=== PATIENT | female | born 1995 | race Hispanic/Latino ===

== ENCOUNTER 2017-04-13 20:00 | Inpatient (IN) | payer MEDICAID, OTHER, SELFPAY ==
[2017-04-13 21:23] VITALS: BMI 38.6
[2017-04-13] MEDS: Lactated Ringer's 1,000 ML IV SCH (21:32)
--- NOTE | 2017-04-13 22:12 | PDOC.LDHP ---
Labor and Delivery H&P Chief complaint: scheduled induction HPI: 21 yo [id number] @ 40.6 wks gestation by 8.0wk sono here for induction 2/2 postdates. Current gestational age (weeks): 40 (40.6) Due date: 04/07/17 Dating criteria: first trimester ultrasound (8wks) Grav: 3 Para: 2 (2001) OB History Details: OB Hx: 2010 2014 [place] [facility] Hx: NILM Current complications: none Abnormal US findings: No Current medications: pre- vitamins Previous surgical history: none Social history: none - Physical Exam Vital signs reviewed and normal: yes General: NAD Heart: RRR Lungs: CTAB Abdomen: gravid Extremeties: no edema FHT: category 1 (accels present, 130s) [place] contractions every: not jasmeet - Vaginal Exam cm dilated: 1 Effacement: 0% Station: -3 - OB Labs Blood type: B RH: positive Antibody Screen: negative HIV: negative RPR: negative HEPSAg: negative 1 hour GCT: negative GBS: negative Urine drug screen: not done Rubella: immune - Assessment 21 yo @40.6 wks gestation admitted for induction secondary to post dates. - Plan -: Plan: Cytotec 25 mcg every 3-4 hours Labor checks every 4 hours <Arcelia Dumont - Last Filed: 04/14/17 04:20> <Susanne Combs - Last Filed: 04/14/17 07:02> Allergies/Adverse Reactions: Allergies Allergy/AdvReac Type Severity Reaction Status Date / Time No Known Drug Allergies Allergy Verified 10/14/14 05:01 Attending Addendum - Attending Addendum I personally evaluated the patient and discussed the management with Dr. Dumont I agree with the History, Examination, Assessment and Plan documented above with any addition or exceptions noted below. 21 yo female at 40.6 wks admitted for IOL 2/2 postdates Cephalic. EFW 7 lbs. IOB labs and anatomy reviewed. 3T negative. GBS negative. Miso placed. Unfavorable cervix. Repeat exam in 4 hours will decide if able to place 2nd miso based on Cheng and contraction pattern. If unable and still unfavorable place Cook balloon. Cat 1 tracing. ABrayMD <Susanne Combs - Last Filed: 04/14/17 07:02>
[2017-04-13] MEDS ORDERED: Acetaminophen 500 MG TAB PO PRN (22:40)
[2017-04-13] MEDS ORDERED: Ondansetron HCl/PF 4 MG/2 ML Vial IVP PRN (22:40)
[2017-04-13] MEDS ORDERED: HYDROcodone/Acetaminophen 5/325 mg Tablet PO PRN ×2 (22:40)
[2017-04-13] MEDS ORDERED: Ibuprofen 800 MG TAB PO PRN (22:40)
[2017-04-13] MEDS ORDERED: Diphenoxylate HCl/Atropine Tablet PO PRN (22:40)
[2017-04-13] MEDS ORDERED: Carboprost 250 MCG/ML AMP IM PRN (22:40)
[2017-04-13] MEDS ORDERED: Lidocaine 1% (PF) 30 ML VIAL SC PRN (22:40)
[2017-04-13] MEDS ORDERED: Misoprostol 100 MCG TAB ONE (22:40)
[2017-04-13] MEDS ORDERED: Misoprostol 200 MCG TAB PR PRN (22:40)
[2017-04-13] MEDS ORDERED: Methylergonovine 0.2 MG/ML VIAL IM PRN (22:40)
[2017-04-13] MEDS ORDERED: Promethazine HCl 25 MG/ML VIAL IM PRN (22:40)
[2017-04-13] MEDS: Misoprostol 100 MCG TAB VAG SCH (22:42)
[2017-04-13 22:56] LABS: Hemoglobin 11.9 g/dL (12.0-16.0); Mean Corpuscular HGB CONC 33.5 g/dL (32.0-36.0); Mean Corpuscular Hemoglobin 27.7 pg (27.0-31.0); Mean Corpuscular Volume 82.6 fl (81.0-99.0); Mean Platelet Volume 8.2 fL (7.4-10.4); Platelet Count 258 thou/uL (130-400); RBC Distribution Width 13.1 % (11.5-14.5); Red Blood Cell (RBC) Count 4.31 mill/uL (4.20-5.40); White Blood Cell (WBC) Count 12.6 thou/uL (4.8-10.8)
[2017-04-13 23:35] LABS: Syphilis Antibody Nonreactive (Nonreactive); Syphilis Antibody Index 0.04 S/CO (<1.00 Non-Reactive)
[2017-04-13 23:46] LABS: HBSAg Index 0.41 S/CO (0-0.99); Hep B Surf Ag Non-Reactive S/CO (NonReactive)
--- NOTE | 2017-04-14 03:56 | PDOC.LDPN ---
Labor & Delivery Progress Note - Subjective Subjective: comfortable - Objective General: NAD Uterine fundus: non tender Dilation: 2 Effacement: 50% Station: -3 FHT: category 1 [place] contractions every: 1-2 minutes - Assessment (1) Post-dates Code(s): O48.0 - POST-TERM Current Visit: Yes Status: Acute Comment: Cytotec held at 0330 2/2 contractions q1-2minutes apart. Will repeat cervical check in four hours. If contractions space out, we will place an additional cytotec. Cheng score of a 6. <Arcelia Dumont - Last Filed: 04/14/17 03:54> Attending Addendum - Attending Addendum I personally evaluated the patient and discussed the management with Dr. Dumont I agree with the History, Examination, Assessment and Plan documented above with any addition or exceptions noted below. 21 yo female at 41 wks by 8.0 wk sono admitted for IOL 2/2 postdates . Now with frequent contractions concern at some points for tachysystole. Cat 1 tracing. Will Repeat exam in 2 hours, place Cook balloon at that time if not 4 cm. Dana <Susanne Combs - Last Filed: 04/14/17 07:05>
[2017-04-14] MEDS: Misoprostol 100 MCG TAB VAG SCH ×2 (04:23→06:52)
[2017-04-14] MEDS: Lactated Ringer's 1,000 ML IV SCH (04:51)
--- NOTE | 2017-04-14 06:41 | PDOC.LDPN ---
Labor & Delivery Progress Note - Subjective Subjective: painful contractions, no concerns - Objective Vital signs reviewed and normal: yes General: NAD, breathing through contractions Uterine fundus: non tender SVE: 06:25 Dilation: 4 Effacement: 50% (60) Station: -2 FHT: category 1, variability present [place] contractions every: Irregular - Assessment (1) Post-dates Code(s): O48.0 - POST-TERM Current Visit: Yes Status: Acute Comment: - at 40.6 wks presents for IOL for post-dates -Cytotec held at 0330 2/2 contractions q1-2minutes apart -Contractions q3-4 min -60/-2 @:625 -Start pitocin -q4h checks (2) Elective induction of labor planned Code(s): [id number] - Current Visit: Yes Status: Acute Comment: -For post- dates -Cytotec x1; tachysystole -On recheck patient dilated to 4; pitocin started Plan: continue plan of care <Nikia Galindo - Last Filed: 04/14/17 06:40> Attending Addendum - Attending Addendum I personally evaluated the patient and discussed the management with Dr. Galindo I agree with the History, Examination, Assessment and Plan documented above with any addition or exceptions noted below. 21 yo female at 41.0 wks by 8.0 wk sono admitted for IOL 2/2 postdates . Now 4 cm with favorable Cheng. Will start pitocin. Repeat exam prn or in 2 to 4 hours. Consider AROM with IUPC placement. Dana <Susanne Combs - Last Filed: 04/14/17 07:07>
[2017-04-14] MEDS ORDERED: LR 500 ML/Oxytocin 10 units 500 ML IV SCH (06:45)
[2017-04-14] MEDS: LR / Pitocin 40 units/1000 ml 1,000 ML IV PRN ×2 (09:58→11:54)
[2017-04-14] MEDS ORDERED: Milk Of Magnesia 30 ML UDCUP PO PRN (13:12)
[2017-04-14] MEDS ORDERED: LR / Pitocin 40 units/1000 ml 1,000 ML IV SCH (13:12)
[2017-04-14] MEDS ORDERED: Preparation H Ointment 28 GM TUBE PR PRN (13:12)
[2017-04-14] MEDS ORDERED: Lanolin Ointment 7 GM TUBE TOP PRN (13:12)
[2017-04-14] MEDS ORDERED: Bisacodyl 10 MG SUPP PR PRN (13:12)
[2017-04-14] MEDS ORDERED: Benzocaine/Menthol 20-0.5% 60 ML CAN TOP PRN (13:12)
[2017-04-14] MEDS: Ferrous Sulfate 325 MG TAB PO SCH (16:27)
[2017-04-14] MEDS: Ibuprofen 800 MG TAB PO SCH (22:13)
[2017-04-14] MEDS: Docusate Calcium (SURFAK) 240 MG CAP PO SCH (22:13)
[2017-04-15] MEDS: Ibuprofen 800 MG TAB PO SCH (06:43)
[2017-04-15 07:52] VITALS: BP 88/53; TEMP 98.4
--- NOTE | 2017-04-15 08:14 | PDOC.FM ---
- Subjective Subjective: Mellisa feels well this morning. BPs have been running on the lower side of normal, but she denies any dizziness, SOB, palpitations, or fatigue. C/o mild lower abdominal cramping type pain but has only had mild lochia overnight. - Objective MAR Reviewed: Yes Vital Signs & Weight: Vital Signs (12 hours) Temp Pulse Resp BP 04/15/17 07:50 98.4 F 77 20 88/53 L 04/15/17 04:48 98.5 F 85 18 95/58 L 04/15/17 00:40 97.9 F 83 18 93/53 L 04/14/17 20:25 98.5 F 91 20 110/58 L Weight Weight 102.058 kg I&O: 04/14/17 04/15/17 04/16/17 06:59 06:59 06:59 Intake Total 1000 Balance 1000 Result Diagrams: 04/13/17 22:27
--- NOTE | 2017-04-15 08:49 | PDOC.PP ---
Post Progress Note Post Day #: 1 Subjective: Mellisa feels well this morning. BPs have been running on the lower side of normal, but she denies any dizziness, SOB, palpitations, or fatigue. C/o mild lower abdominal cramping type pain but has only had mild lochia overnight. PO intake tolerated: yes Flatus: yes Ambulation: yes Vital Signs (12 hours) Temp Pulse Resp BP 04/15/17 08:00 98.4 F 77 20 04/15/17 07:50 98.4 F 77 20 88/53 L 04/15/17 04:48 98.5 F 85 18 95/58 L 04/15/17 00:40 97.9 F 83 18 93/53 L Weight Weight 102.058 kg - Physical Examination General: NAD Cardiovascular: no m/r/g, RRR Respiratory: clear to auscultation bilaterally, non-labored breathing Abdominal: + bowel sounds, lochia (mild), appropriately TTP Fundus firm & at: umbilicus Extremities: negative homans (B) Skin: no rash Perineum: no hematomas, repair site intact Neurological: no gross focal deficits Psychiatric: A&Ox3, normal affect Result Diagrams: 04/13/17 22:27 Additional Labs: Post Labs Blood Type B POSITIVE 04/13/17 22:27 Hep Bs Antigen Non-Reactive S/CO (NonReactive) 04/13/17 22:27 (1) Post-dates , delivered, current hospitalization Code(s): O48.0 - POST-TERM Status: Acute Comment: -Via @ 0948 on 04/15/17. -EBL 300mL, no complications except small 2nd degree perineal laceration. -Afebrile, vital signs WNL with the exception of a couple low BPs this morning. Pt asymptomatic. AM H&H pending. -Routine course - ambulating, eating, passing gas, pain well controlled. (2) Second-degree perineal laceration, with delivery Code(s): O70.1 - SECOND DEGREE PERINEAL LACERATION DURING DELIVERY Status: Acute Comment: -S/p repair after delivery with local lidocaine for anesthesia. -Intact this morning without any significant bleeding or hematoma. (3) Term of female Code(s): Z37.0 - SINGLE LIVE Status: Acute Comment: -Breast and bottle feeding; discussed benefits. - contraception to be discussed at 2 wk visit at [facility]. - Assessment/Plan Dispo: Possibly home this afternoon pending AM H&H and bilirubin level. <Jeremías Vega - Last Filed: 04/15/17 08:47> Vital Signs (12 hours) Temp Pulse Resp BP 04/15/17 08:00 98.4 F 77 20 04/15/17 07:50 98.4 F 77 20 88/53 L 04/15/17 04:48 98.5 F 85 18 95/58 L 04/15/17 00:40 97.9 F 83 18 93/53 L Weight Weight 102.058 kg Result Diagrams: 04/15/17 08:45 Additional Labs: Post Labs Blood Type B POSITIVE 04/13/17 22:27 Hep Bs Antigen Non-Reactive S/CO (NonReactive) 04/13/17 22:27 <Gee De La Paz - Last Filed: 04/15/17 09:29> Attending Addendum - Attending Addendum I personally evaluated the patient and discussed the management with Dr. Rouse/Silvia. I agree with the History, Examination, Assessment and Plan documented above with any addition or exceptions noted below. Pain controlled. Vitals normal. Afeb. Fundus firm. Normal Lochia. Stable for D/C home at 24 hours if baby's Bili OK. <Gee De La Paz - Last Filed: 04/15/17 09:29>
[2017-04-15 08:55] LABS: Hemoglobin 10.9 g/dL (12.0-16.0); Platelet Count 231 thou/uL (130-400)
[2017-04-15] MEDS ORDERED: Prenatal Vitamin 1 TAB PO SCH (09:00)
[2017-04-15] MEDS: Ferrous Sulfate 325 MG TAB PO SCH (09:14)
[2017-04-15] MEDS: Docusate Calcium (SURFAK) 240 MG CAP PO SCH (09:14)
[2017-04-15] MEDS ORDERED: Adacel (T-DAP) 0.5 ML VIAL IM ONE (13:12)
--- NOTE | 2017-04-15 21:07 | OP-2 ---
VAGINAL DELIVERY NOTE DELIVERING PHYSICIAN: Nikia Galindo DO ATTENDING: Gee De La Paz M.D. PROCEDURE: Spontaneous vaginal delivery. ANESTHESIA: Local for repair. ESTIMATED BLOOD LOSS: 250 mL PREOPERATIVE DIAGNOSES: 1. Induction of labor for postdates. 2. Term intrauterine . POSTOPERATIVE DIAGNOSES: 1. Term intrauterine , delivered. 2. Induction of labor for postdates. 3. Second-degree laceration status post repair. INDICATIONS: A 21-year-old female G3, P2, presented to labor and delivery for induction due to postdate. DELIVERY NOTE: This is a 21-year-old female G3, P2-0-0-2 at 41.0 weeks, who delivered a viable female infant at 9:48 on 04/14/2017. Following an uneventful antepartum course, a vigorous male was delivered over an intact perineum in the occipitoanterior position. Anterior shoulder and then remainder of the body delivered. No nuchal cord. The head was held down and mouth and nares were bulb suctioned. Cord clamped and cut and cord blood collected. Placenta delivered intact with a 3-vessel cord noted. Fundal massage was performed and the fundus was firm. The cervix and vagina were inspected and a second-degree laceration was noted and repaired with a 3-0 Vicryl in the usual fashion with good approximation and hemostasis after 15 mL of 1% lidocaine was injected at the site. Infant went to nursery in good condition for routine care. Apgars were 9 and 9 at 1 and 5 minutes, respectively. The patient tolerated delivery well and went to after routine recovery/care. [facility]ire[facility]
== END 2017-04-15 11:45 | disposition home or self-care (01) | DRG 775 ==
LOC: L&D 20:04 → 3SW 04-14 13:26
PROVIDERS: ADMIT Student in an Organized Health Care Education/Training Program; ATTEND Student in an Organized Health Care Education/Training Program
PROC: 10E0XZZ Delivery of Products of Conception, External Approach (ICD-10-PCS; principal; 2017-04-14)
PROC: 0KQM0ZZ Repair Perineum Muscle, Open Approach (ICD-10-PCS; 2017-04-14)
PROC: 3E0P7VZ Introduction of Hormone into Female Reproductive, Via Natural or Artificial Opening (ICD-10-PCS; 2017-04-14)
PROC: 3E033VJ Introduction of Other Hormone into Peripheral Vein, Percutaneous Approach (ICD-10-PCS; 2017-04-14)
PROC: 10907ZC Drainage of Amniotic Fluid, Therapeutic from Products of Conception, Via Natural or Artificial Opening (ICD-10-PCS; 2017-04-14)
DX: O48.0 Post-term pregnancy (principal); O70.1 Second degree perineal laceration during delivery; Z37.0 Single live birth; Z3A.40 40 weeks gestation of pregnancy
CPT/HCPCS: 36415; 76815; 85014; 85018; 85027; 85049; 86780; 86850; 86900; 86901; 87340; J2001; J7120